=== PATIENT | female | born 1990 | race Caucasian/White ===

== ENCOUNTER 2018-12-17 23:01 | Emergency (ER) | payer OTHER ==
[~2018-12-17] VITALS: Ht 160 cm; Wt 131.5 kg
[~2018-12-17 23:01] MED LIST: ALBU90OI INH; AMOX500 PO; Amoxicillin500 MG PO; Amoxicillin875 MG PO; Azasite2.5 ML LEFTEYE; CEPH500 PO; CIPR500 PO; Cleocin HCl300 MG PO; DOXY100 PO; Diflucan150 MG PO; FLUT.05NI; HYDACE5 PO; HYDR1TAB94 PO; IBUP800 PO; METPRE4DP PO; METR500 PO; NAPR500 PO; Naprosyn500 MG PO; ONDA4 PO; OXYACE5T PO; PENVK500 PO; PHENA200 PO; PRED20 PO; Peridex480 ML SS; Pyridium200 MG PO; SERT100 PO; SERT50 PO; TRAM50 PO; Ultram50 MG PO
[2018-12-18] MEDS ORDERED: Norco 5-325 Ta1 EACH PO (00:30)
[2018-12-18] MEDS ORDERED: CEPH500 PO (00:30)
[2018-12-18] MEDS ORDERED: Bactrim Ds Tab1 EACH PO (00:30)
== END 2018-12-18 00:44 | disposition home or self-care (01) ==
LOC: ER 23:01
DX: L05.91 Pilonidal cyst without abscess (principal); Z79.899 Other long term (current) drug therapy; F17.210 Nicotine dependence, cigarettes, uncomplicated
CPT/HCPCS: 99282

== ENCOUNTER → 2018-12-21 | Outpatient (CLI) | payer OTHER ==
[~2018-12-21] MED LIST changes: +Bactrim Ds Tab1 EACH PO; +Norco 5-325 Ta1 EACH PO
== END | disposition home or self-care (01) ==
LOC: LAB SHORT 09:29 → LAB EV 09:29
DX: L05.01 Pilonidal cyst with abscess (principal)
CPT/HCPCS: 87070; 87075; 87077; 87205

== ENCOUNTER 2020-06-27 00:59 | Emergency (ER) | payer SELFPAY ==
[~2020-06-27] VITALS: Ht 162.6 cm; Wt 129.3 kg
[~2020-06-27 00:59] MED LIST changes: +IBU600 MG PO
== END 2020-06-27 05:00 | disposition left against medical advice (07) ==
LOC: ER 00:59
DX: Z53.21 Procedure and treatment not carried out due to patient leaving prior to being seen by health care provider (principal)

== ENCOUNTER → 2021-01-11 | Outpatient (CLI) | payer OTHER ==
[2021-01-14 03:11] LABS: CHLAMYDIA BY NAA Negative (Negative); GONOCOCCUS BY NAA Negative (Negative); TRICH VAG BY NAA Negative (Negative)
== END | disposition home or self-care (01) ==
LOC: LAB SHORT 18:10
PROVIDERS: Physician Assistant Medical
DX: N39.0 Urinary tract infection, site not specified (principal)
CPT/HCPCS: 87086; 87491; 87591; 87661

== ENCOUNTER → 2021-02-23 | Outpatient (CLI) | payer OTHER ==
[2021-02-27 14:11] LABS: HPV 16 Negative (Negative); HPV 18 Negative (Negative); HPV OTHER HR TYPES Negative (Negative)
== END ==
LOC: LAB 18:12 → LAB SHORT 18:12
PROVIDERS: Student in an Organized Health Care Education/Training Program
DX: Z01.419 Encounter for gynecological examination (general) (routine) without abnormal findings (principal)
CPT/HCPCS: 87624; G0145